=== PATIENT | male | born 1965 | race African-American/Black ===

== ENCOUNTER 2018-10-15 10:35 | Day surgery (SDC) | payer BC ==
[2018-10-15 11:47] VITALS: TEMP 98.1
[2018-10-15 14:19] VITALS: BP 107/72; PULSE 62
--- NOTE | 2018-10-20 18:25 | PATH ---
Surgical Pathology Report Patient Name: PENG ADAMS [facility] [place]. Rec. #: [id number] /Age/Gender: 1965 (Age: 53) / M Account: [id number] Location: [facility]-ENDOSCOPY Taken: 10/15/2018 Received: 10/16/2018 Reported: 10/20/2018 Physicians: Max Bernstein D.O. Specimen(s) Received POLYP SIGMOID@ 20CM Clinical History Colon cancer screening Final Diagnosis SIGMOID POLYP AT 20 CM, POLYPECTOMY: TUBULAR ADENOMA. Electronically Signed Aline Felix M.D. Gross Description Received in formalin, labeled "sigmoid polyp at 20 cm" are 2 corbin, irregular portions of soft tissue measuring 0.5-1.2 cm. in greatest dimension. The base of the larger polyp is inked in black, and then serially sectioned. The specimens are submitted in toto in 2 cassettes as follows: 1- larger polyp, 2- smaller polyp. KASSIE/10/17/2018 sandi/10/17/2018
== END 2018-10-15 14:20 | disposition home or self-care (01) ==
LOC: JASU-ENDO 10:35
PROVIDERS: ATTEND Internal Medicine Gastroenterology
PROC: 0DBN8ZX Excision of Sigmoid Colon, Via Natural or Artificial Opening Endoscopic, Diagnostic (ICD-10-PCS; principal; 2018-10-15 11:45)
DX: Z12.11 Encounter for screening for malignant neoplasm of colon (principal); D12.5 Benign neoplasm of sigmoid colon; K64.8 Other hemorrhoids
CPT/HCPCS: 88305-TC